=== PATIENT | female | born 1985 | race Caucasian/White ===

== ENCOUNTER 2018-03-22 17:47 | Emergency (ER) | payer MEDICAID ==
[~2018-03-22] VITALS: Ht 162.6 cm; Wt 98.4 kg
[2018-03-22 18:21] VITALS: BP 116/70
--- NOTE | 2018-03-22 18:26 | NUR ---
pt to lobby awaiting avaiable bed. gcs=15. rr are even and unlabored. vss. no acute distress at this time.
--- NOTE | 2018-03-22 19:17 | NUR ---
TO ER BED 4
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
[2018-03-22] MEDS ORDERED: KETOROLAC 30 MG/ML VIAL IM ONE (20:15)
[2018-03-22 20:44] VITALS: BP 121/77
--- NOTE | 2018-03-22 20:44 | NUR ---
Patient discharged with v/s stable. Written and verbal after care instructions given and explained. Patient alert, oriented and verbalized understanding of instructions. Ambulatory with steady gait. All questions addressed prior to discharge. ID band removed. Patient advised to follow up with PMD. Rx of NAPROSYN 500 MG, VALIUM 5 MG given. Patient educated on indication of medication including possible reaction and side effects. Opportunity to ask questions provided and answered.
== END 2018-03-22 20:44 | disposition home or self-care (01) ==
LOC: MED 17:47
DX: S29.012A Strain of muscle and tendon of back wall of thorax, initial encounter (principal); S16.1XXA Strain of muscle, fascia and tendon at neck level, initial encounter; V43.52XA Car driver injured in collision with other type car in traffic accident, initial encounter; Y93.89 Activity, other specified; Y92.413 State road as the place of occurrence of the external cause; Y99.8 Other external cause status
CPT/HCPCS: 71045; 81025; 96372; 99283; J1885; Q0092